=== PATIENT | male | born 1970 | race Caucasian/White ===

== ENCOUNTER → 2016-12-30 | Outpatient (CLI) | payer MEDICARE ==
[~2016-12-30] MED LIST: BUPR-197; CELE10TA9; OXYC40TA20; PERC10TA27
== END ==
LOC: HRSP 14:56
PROVIDERS: ATTEND Psychiatry & Neurology Neurology
DX: G47.37 Central sleep apnea in conditions classified elsewhere (principal); G47.33 Obstructive sleep apnea (adult) (pediatric)
CPT/HCPCS: 94620